=== PATIENT | male | born 2000 | race Hispanic/Latino ===

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

== ENCOUNTER 2021-09-23 21:55 | Emergency (ER) | payer OTHER ==
[~2021-09-23] VITALS: Ht 180.3 cm; Wt 132.0 kg
[2021-09-23 23:34] VITALS: BP 134/78
[2021-09-23 23:46] VITALS: BP 133/72
[2021-09-24] VITALS (10 sets, daily range): BP systolic 109–156; BP diastolic 50–84
[2021-09-24 00:24] LABS: HEMATOCRIT 40.4 % (39.0-50.0); HEMOGLOBIN 13.9 g/dl (14.0-18.0); MEAN CELL VOLUME 85.2 fL CALC (80.0-100.0); MEAN CORPUSCULAR HGB 29.3 pG CALC (26.0-32.0); MEAN CORPUSCULAR HGB CONC 34.4 g/dL CAL (32.0-36.0); NEUT# 15.26 thou/uL (1.82-7.42); RED BLOOD COUNT 4.74 mill/uL (4.70-6.10)
[2021-09-24 00:37] LABS: ALBUMIN 4.9 g/dL (3.2-5.0); ALKALINE PHOSPHATASE 94 u/l (38-126); ANION GAP 17 (6-22 (CALC)); BILIRUBIN, TOTAL 1.4 mg/dL (0.0-1.4); BUN 14 mg/dL (8-21); BUN/CREATININE RATIO 17 (12-20 (CALC)); CARBON DIOXIDE 26 mmol/l (22-30); CHLORIDE 103 mmol/l (95-108); CREATININE 0.8 mg/dL (0.7-1.3); GFR FOR AFR.AMER. > 60 ML/MIN (>=60 (CALC)); GFR OTHER RACES > 60 ML/MIN (>=60 (CALC)); POTASSIUM 3.7 mmol/l (3.5-5.1); SGOT/AST 27 u/l (17-59); SODIUM 142 mmol/l (137-146)
== END 2021-09-24 05:30 | disposition short-term general hospital (02) ==
LOC: ED 21:55
DX: J36 Peritonsillar abscess (principal); Z20.822 Contact with and (suspected) exposure to COVID-19
CPT/HCPCS: Q9967

== ENCOUNTER 2021-10-28 18:55 | Emergency (ER) | payer OTHER ==
[~2021-10-28] VITALS: Ht 180.3 cm; Wt 131.0 kg
[2021-10-28] MEDS ORDERED: TRAMADOL HYDROC50 M1 PO (19:40)
[2021-10-28] MEDS ORDERED: BACTRIM DS1 TAB PO (19:40)
[2021-10-28] MEDS ORDERED: OMNICEF300 M1 PO (19:40)
[2021-10-28 19:57] VITALS: BP 140/76
== END 2021-10-28 20:03 | disposition home or self-care (01) ==
LOC: ED 18:55
DX: L03.031 Cellulitis of right toe (principal)

== ENCOUNTER 2022-01-24 16:58 | Emergency (ER) | payer OTHER ==
[~2022-01-24] VITALS: Ht 180.3 cm; Wt 136.0 kg
[~2022-01-24 16:58] MED LIST changes: +BACTRIM DS1 TAB PO; +OMNICEF300 M1 PO; +TRAMADOL HYDROC50 M1 PO
[2022-01-24] MEDS ORDERED: KEFLEX500 MG PO (18:06)
[2022-01-24] MEDS ORDERED: CIPROFLOXACN500 MG PO (18:06)
[2022-01-24 18:28] VITALS: BP 142/80
== END 2022-01-24 18:35 | disposition home or self-care (01) ==
LOC: ED 16:58
DX: S91.332A Puncture wound without foreign body, left foot, initial encounter (principal); W45.0XXA Nail entering through skin, initial encounter; Y92.007 Garden or yard of unspecified non-institutional (private) residence as the place of occurrence of the external cause

== ENCOUNTER 2022-09-18 08:22 | Emergency (ER) | payer OTHER ==
[~2022-09-18] VITALS: Ht 180.3 cm; Wt 102.0 kg
[~2022-09-18 08:22] MED LIST changes: +CIPROFLOXACN500 MG PO; +KEFLEX500 MG PO
[2022-09-18 08:34] VITALS: BP 130/64
[2022-09-18 09:13] LABS: ALBUMIN 4.9 g/dL (3.2-5.0); ALKALINE PHOSPHATASE 71 u/l (38-126); BUN 14 mg/dL (9-20); BUN/CREATININE RATIO 18 (12-20 (CALC)); CARBON DIOXIDE 27 mmol/l (22-30); CHLORIDE 104 mmol/l (95-108); CREATININE 0.8 mg/dL (0.7-1.3); GFR FOR AFR.AMER. > 60 ML/MIN (>=60 (CALC)); GFR OTHER RACES > 60 ML/MIN (>=60 (CALC)); SGOT/AST 29 u/l (17-59); SODIUM 140 mmol/l (137-146); TOTAL PROTEIN 8.4 g/dL (6.3-8.2)
[2022-09-18 09:14] LABS: ANION GAP 14 (6-22 (CALC)); BILIRUBIN, TOTAL 2.3 mg/dL (0.2-1.3); POTASSIUM 4.5 mmol/l (3.5-5.1)
[2022-09-18 09:17] LABS: BASO% 0.3 % (0-3); HEMATOCRIT 40.5 % (39.0-50.0); HEMOGLOBIN 13.8 g/dl (14.0-18.0); IMMATURE GRANULOCYTES 0.1 % (0.0-5.0); LYMPH% 10.5 % (15-41); MEAN CELL VOLUME 86.4 fL CALC (80.0-100.0); MEAN CORPUSCULAR HGB 29.4 pG CALC (26.0-32.0); MEAN CORPUSCULAR HGB CONC 34.1 g/dL CAL (32.0-36.0); MONO% 7.4 % (2-13); NEUT# 11.15 thou/uL (1.82-7.42); NEUT% 80.7 % (42-76); RED BLOOD COUNT 4.69 mill/uL (4.70-6.10); RED CELL DISTRI WIDTH 14.3 % (11.5-15.5)
[2022-09-18 10:02] VITALS: BP 124/53
[2022-09-18] MEDS ORDERED: OMNI-PAC300 MG PO (10:49)
[2022-09-18] MEDS ORDERED: BACTRIM DS1 TAB PO (10:49)
[2022-09-18 10:52] VITALS: BP 124/53
[2022-09-19] MEDS ORDERED: TYLENOL # 31 TA1 PO (04:49)
== END 2022-09-18 11:04 | disposition home or self-care (01) ==
LOC: ED 08:22
PROVIDERS: Family Medicine
DX: L03.116 Cellulitis of left lower limb (principal)
CPT/HCPCS: Q9967

== ENCOUNTER 2022-09-19 04:28 | Emergency (ER) | payer OTHER ==
[~2022-09-19] VITALS: Ht 180.3 cm; Wt 120.0 kg
[~2022-09-19 04:28] MED LIST changes: +OMNI-PAC300 MG PO
[2022-09-19 04:34] VITALS: BP 142/68
[2022-09-19] MEDS ORDERED: TYLENOL # 31 TA1 PO (04:49)
[2022-09-19 04:58] VITALS: BP 142/68
== END 2022-09-19 05:07 | disposition home or self-care (01) ==
LOC: ED 04:28
DX: L03.116 Cellulitis of left lower limb (principal)